=== PATIENT | male | born 1985 | race Caucasian/White ===

== ENCOUNTER 2017-12-18 13:29 | Emergency (ER) | payer BC ==
--- NOTE | 2017-12-18 14:32 | EDM.PDOC ---
ED HPI GENERAL MEDICAL PROBLEM - General Chief Complaint: ENT Problem Stated Complaint: FLUID COMING FROM NOSE Time Seen by Provider: 12/18/17 14:00 Source of Information: Reports: Patient History Limitations: Reports: No Limitations - History of Present Illness INITIAL COMMENTS - FREE TEXT/NARRATIVE: Patient is a 32-year-old male presents ED complaining of one episode dizziness, tunnel vision, and the sensation he was going to pass out. Symptoms only lasted for a short period of time. Patient states for the past 6 days has been complaining of some sinus drainage from the right nare. He's had cold like symptoms with a dry hacky cough and postnasal drip. Intermittent sore throat with coughing. No fever, nausea/vomiting, chest pain, sob, stiff neck, rash, or any additional complaints. Patient has been drinking plenty of fluids and eating okay. Today with walking around with his family he bent down and had quite a bit of nasal secretions clear yellow in color from his right nare that filled the palm of his hand but did not spill out. States shortly after with sitting in preparation to eat he became dizzy, pale, diaphoretic, and had the sensation he needed to have a bowel movement. Symptoms improved quite quickly. Patient had a BM and since has had no complaints. There's been no recent sick exposure, ingestion of bad questionable food, or any additional complaints. Of note patient does have a deviated septum secondary to fracture to the left cheek. Denies any history of seasonal allergies. Takes no medications. Does not smoke. Alcohol use very seldom. No recreational drug use. He takes omeprazole for GERD. Bilateral Neck Pain Score (Numeric/FACES): 2 - Related Data Allergies Allergy/AdvReac Type Severity Reaction Status Date / Time No Known Allergies Allergy Verified 12/18/17 13:40 Home Meds: Home Meds Omeprazole 20 mg PO DAILY 12/18/17 [History] Past Medical History Gastrointestinal History: Reports: GERD - Past Surgical History HEENT Surgical History: Reports: Tonsillectomy Social & Family History - Tobacco Use Smoking Status *Q: Never Smoker Second Hand Smoke Exposure: No - Caffeine Use Caffeine Use: Reports: Coffee - Recreational Drug Use Recreational Drug Use: No ED ROS GENERAL - Review of Systems Review Of Systems: See Below Constitutional: Denies: Fever, Chills, Malaise, Weakness, Fatigue, Decreased Appetite HEENT: Reports: No Symptoms, Rhinitis Respiratory: Reports: No Symptoms Cardiovascular: Reports: No Symptoms GI/Abdominal: Reports: No Symptoms : Reports: No Symptoms Musculoskeletal: Reports: No Symptoms Skin: Reports: No Symptoms Neurological: Reports: Dizziness (episodic). Denies: Confusion, Headache, Numbness, Pre-Existing Deficit, Syncope, Tingling, Trouble Speaking, Difficulty Walking Psychiatric: Reports: No Symptoms ED EXAM, DIZZINESS - Physical Exam Exam: See Below Exam Limited By: No Limitations General Appearance: Alert, WD/WN, No Apparent Distress Eye Exam: Bilateral Eye: EOMI, Normal Inspection, Nystagmus (none noted), PERRL Nystagmus: No: worsens with head to L, worsens with head to R, reproducible, reversible, constant, short duration Ears: Normal External Exam, Normal Canal, Hearing Grossly Normal, Normal TMs Nose: Normal Inspection, Normal Mucosa, No Blood Throat/Mouth: Normal Inspection, Normal Oropharynx, Normal Voice, No Airway Compromise Head Exam: Atraumatic, Normocephalic Neck: Normal Inspection, Supple, Non-Tender, Full Range of Motion. No: Lymphadenopathy (L), Lymphadenopathy (R) Respiratory/Chest: No Respiratory Distress, Lungs Clear, Normal Breath Sounds, No Accessory Muscle Use, Chest Non-Tender Cardiovascular: Normal Peripheral Pulses, Regular Rate, Rhythm, No JVD GI/Abdominal: Normal Bowel Sounds, Soft, Non-Tender, No Organomegaly, No Distention Neurological: Alert, Normal Mood/Affect, Normal Dorsiflexion, CN II-XII Intact, Normal Gait, No Motor/Sensory Deficits, Oriented x 3 Back Exam: Normal Inspection Extremities: Normal Inspection Psychiatric: Normal Affect, Normal Mood Skin Exam: Warm, Dry, Intact, Normal Color, No Rash Course - Vital Signs Last Recorded V/S: Last Vital Signs Temp 99.1 F 12/18/17 13:35 Pulse 80 12/18/17 13:35 Resp 13 12/18/17 13:35 BP 149/94 H 12/18/17 13:35 Pulse Ox 97 12/18/17 13:35 Orthostatic Blood Pressure [ 132/86 Standing] Orthostatic Blood Pressure [ 141/88 Sitting] Orthostatic Blood Pressure [ 131/83 Supine] - Orders/Labs/Meds Orders: Active Orders 24 hr Category Date Time Status EKG Documentation Completion [RC] STAT Care 12/18/17 14:24 Active Orthostatic Vital Signs [RC] ASDIRECTED Care 12/18/17 14:24 Active - Re-Assessments/Exams Free Text/Narrative Re-Assessment/Exam: Patient has no symptoms at this time. Patient unable to produce any drainage from his right nare with bending over. Slight dizziness with bending over and standing. Suspect patient had vasovagal episode brought on by sinus drainage, body position changes. Patient states during this episode had the sensation needed to have a BM and did with no further symptoms since. Again he has no symptoms at this time. WIll order EKG and orthostatic vitals. EKG NSR. Orthostatic vitals were negative. Patient unable to reproduce any further symptoms. He is ready to go home. Suspect he had a vasal vagal episode. Discharge instructions as documented. Departure - Departure Time of Disposition: 15:17 Disposition: Home, Self-Care 01 Condition: Good Clinical Impression: Viral upper respiratory tract infection with cough, Vasovagal near syncope - Discharge Information Instructions: Near-Syncope, Viral Illness, Adult, Vasovagal Syncope, Adult Referrals: PCP,Not In Area [Primary Care Provider] - Forms: ED Department Discharge Additional Instructions: Continue to monitor for worsening symptoms. Suspect you have a viral upper respiratory infection. Experienced a vasovagal episode that resolved. Take flonase 1 spray to each nare twice a day. Take claritan 10mg everyday as well. May use nasal saline spray to each nare as needed throughout the course of the day for nasal congestion. Push the fluids. Take your time with body position changes. If you develop any new or worsening symptoms please return to the E.D. Followup with PCP if symptoms persist this coming week. - My Orders Last 24 Hours: My Active Orders 12/18/17 14:24 EKG Documentation Completion [RC] STAT Orthostatic Vital Signs [RC] ASDIRECTED - Assessment/Plan Last 24 Hours: My Active Orders 12/18/17 14:24 EKG Documentation Completion [RC] STAT Orthostatic Vital Signs [RC] ASDIRECTED
== END 2017-12-18 15:26 | disposition home or self-care (01) ==
LOC: JD.ED 13:29
DX: R55 Syncope and collapse (principal); J06.9 Acute upper respiratory infection, unspecified; K21.9 Gastro-esophageal reflux disease without esophagitis; Z79.899 Other long term (current) drug therapy
CPT/HCPCS: 93005; 99283; 99284-25